=== PATIENT | female | born 1955 | race Caucasian/White ===

== ENCOUNTER → 2018-07-29 | Emergency (ER) | payer BC ==
[~2018-07-29] VITALS: Ht 175.3 cm; Wt 78.3 kg
[~2018-07-29] MED LIST: CEPH-572 PO
[2018-07-29 19:01] VITALS: BP 149/84
== END | disposition home or self-care (01) ==
LOC: ER 18:28
DX: S51.812A Laceration without foreign body of left forearm, initial encounter (principal); V19.88XA Pedal cyclist (driver) (passenger) injured in other specified transport accidents, initial encounter; Y93.55 Activity, bike riding; Y92.413 State road as the place of occurrence of the external cause; Y99.9 Unspecified external cause status
CPT/HCPCS: 12002; 99283; A6222; A6449